=== PATIENT | female | born 1945 | race Caucasian/White ===

== ENCOUNTER 2023-06-30 09:53 | Inpatient (IN) ==
[2023-06-30] MEDS ORDERED: IOPAMIDOL 100 ML BOTTLE IV ONE (09:54)
[2023-06-30 10:13] LABS: POC Calcium, Ionized 1.16 (1.16-1.32); POC Creatinine 0.8 (0.6-1.2); POC Potassium 3.6 (3.3-5.1)
[2023-06-30] MEDS ORDERED: 0.9 % SODIUM CHLORIDE 1,000 ML IV SCH ×2 (10:15→14:21)
[2023-06-30] MEDS ORDERED: ONDANSETRON 4 MG/2 ML VIAL IV ONE (10:55)
[2023-06-30 10:57] LABS: Basophils # (Auto) 0.03 K/mcL (0.00-0.30); Basophils % (Auto) 0.8 % (0.0-2.0); Eosinophils # (Auto) 0.13 K/mcL (0.00-0.70); Eosinophils % (Auto) 3.5 % (0.0-7.0); Hematocrit 41.4 % (34.1-44.9); Hemoglobin 13.4 g/dL (11.2-15.7); Lymphocytes # (Auto) 1.41 K/mcL (1.50-4.80); Lymphocytes % (Auto) 37.5 % (15.5-49.0); Mean Cell Volume 83.3 fL (80.0-100.0); Mean Corpuscular HGB Conc 32.4 g/dL (31.0-36.0); Mean Platelet Volume 10.2 fL (8.8-12.5); Monocytes # (Auto) 0.26 K/mcL (0.10-0.90); Monocytes % (Auto) 6.9 % (1.0-12.0); Platelet Count 267 K/mcL (140-440); RBC 4.97 M/mcL (3.59-5.38); Red Cell Distribution Width 13.8 % (11.5-14.5); WBC 3.8 K/mcL (4.5-11.0)
[2023-06-30 11:11] LABS: ALT/SGPT 9 U/L (<40); AST/SGOT 16 U/L (<32); Albumin 3.9 gm/dL (3.2-5.2); Alkaline Phosphatase 107 U/L (39-117); Bilirubin,Direct < 0.2 mg/dL (0-0.3); Bilirubin,Total 0.4 mg/dL (0.1-1.0); Globulin 2.6 gm/dL (2.2-3.7)
[2023-06-30] MEDS ORDERED: ASPIRIN 81 MG TAB.CHEW CHEWED ONE (12:02)
[2023-06-30] MEDS ORDERED: CLOPIDOGREL 300 MG TABLET PO ONE (12:02)
[2023-06-30] MEDS ORDERED: ATORVASTATIN 40 MG TABLET PO ONE (12:02)
[2023-06-30 13:01] LABS: Prothrombin Time 13.5 sec (11.9-14.5)
[2023-06-30] MEDS ORDERED: POTASSIUM CHLORIDE 40 MEQ in DEXTROSE 5% IN WATER 500 ML IV PRN (14:21)
[2023-06-30] MEDS ORDERED: SENNOSIDES 1 TABLET PO PRN (14:21)
[2023-06-30] MEDS ORDERED: IPRATROPIUM/ALBUTEROL 3 ML AMPUL.NEB NEB PRN (14:21)
[2023-06-30] MEDS ORDERED: MAGNESIUM SULFATE 2 GM/50 ML BAG IV PRN (14:21)
[2023-06-30] MEDS ORDERED: ONDANSETRON 4 MG/2 ML VIAL IV PRN (14:21)
[2023-06-30] MEDS ORDERED: POLYETHYLENE GLYCOL 3350 17 GM PACKET PO PRN (14:21)
[2023-06-30] MEDS ORDERED: LABETALOL 5 MG/ML ML IV PRN (14:21)
[2023-06-30] MEDS ORDERED: POTASSIUM CHLORIDE 20 MEQ TABLET PO PRN ×2 (14:21)
[2023-06-30 14:45] LABS: HDL Cholesterol 76 mg/dL (>40); LDL Cholesterol,Calculated 153 mg/dL (<100); Non-HDL Cholesterol 170 mg/dL (<130); Triglycerides 90 mg/dL (<150)
[2023-06-30 15:15] LABS: Appearance,Urine CLEAR (Clear); Bilirubin,Urine Negative (Negative); Color,Urine YELLOW; Culture Indicated,Urine No; Glucose,Urine (UA) Negative (Negative); Ketones,Urine Negative (Negative); Leukocyte Esterase,Urine Negative /uL (Negative); Nitrate,Urine Negative (Negative); Protein,Urine Negative (Negative); Specific Gravity,Urine 1.039 (1.000-1.035); Urine Blood Negative (Negative); Urobilinogen,Urine Negative
[2023-06-30] MEDS: ATORVASTATIN 40 MG TABLET PO SCH (20:12)
[2023-06-30] MEDS: DOCUSATE SODIUM 100 MG CAPSULE PO SCH (20:13)
[2023-07-01 06:23] LABS: Basophils # (Auto) 0.04 K/mcL (0.00-0.30); Basophils % (Auto) 0.9 % (0.0-2.0); Eosinophils # (Auto) 0.16 K/mcL (0.00-0.70); Eosinophils % (Auto) 3.8 % (0.0-7.0); Lymphocytes # (Auto) 1.35 K/mcL (1.50-4.80); Lymphocytes % (Auto) 31.7 % (15.5-49.0); Mean Cell Volume 85.6 fL (80.0-100.0); Mean Corpuscular HGB Conc 31.6 g/dL (31.0-36.0); Mean Platelet Volume 10.5 fL (8.8-12.5); Monocytes # (Auto) 0.33 K/mcL (0.10-0.90); Monocytes % (Auto) 7.7 % (1.0-12.0); Neutrophils % (Auto) 55.7 % (38.0-78.0); Platelet Count 245 K/mcL (140-440); RBC 4.44 M/mcL (3.59-5.38); Red Cell Distribution Width 13.8 % (11.5-14.5); WBC 4.3 K/mcL (4.5-11.0)
[2023-07-01 06:47] LABS: ALT/SGPT 6 U/L (<40); AST/SGOT 12 U/L (<32); Albumin 3.1 gm/dL (3.2-5.2); Albumin/Globulin Ratio 1.3 (1.0-2.3); Alkaline Phosphatase 84 U/L (39-117); Bilirubin,Direct < 0.2 mg/dL (0-0.3); Bilirubin,Total 0.5 mg/dL (0.1-1.0); Blood Urea Nitrogen 16 mg/dL (8-23); Calcium 8.6 mg/dL (8.6-10.4); Carbon Dioxide 24 mmol/L (22-30); Chloride 106 mmol/L (96-108); Globulin 2.3 gm/dL (2.2-3.7); Glomerular Filtration Rate 70; Glucose 94 mg/dL (70-105); Lactate Dehydrogenase 153 U/L (135-225); Phosphorous 3.8 mg/dL (2.5-4.5); Triglycerides 72 mg/dL (<150); Uric Acid 3.9 mg/dL (2.5-8.0)
[2023-07-01] MEDS: CLOPIDOGREL 75 MG TABLET PO SCH (08:59)
[2023-07-01] MEDS: PANTOPRAZOLE 40 MG TABLET PO SCH (09:00)
[2023-07-01] MEDS: ASPIRIN 81 MG TAB.CHEW CHEWED SCH (09:00)
[2023-07-01] MEDS: ENOXAPARIN 40 MG/0.4 ML SYRINGE SQ SCH (09:00)
[2023-07-01] MEDS: DOCUSATE SODIUM 100 MG CAPSULE PO SCH ×2 (09:00→20:18)
[2023-07-01] MEDS ORDERED: CLOPIDOGREL 75 MG TABLET PO ONE (10:00)
[2023-07-01] MEDS ORDERED: ACETAMINOPHEN 325 MG TABLET PO PRN (10:36)
[2023-07-01] MEDS: ATORVASTATIN 40 MG TABLET PO SCH (20:18)
[2023-07-02] MEDS: ENOXAPARIN 40 MG/0.4 ML SYRINGE SQ SCH (08:07)
[2023-07-02] MEDS: ASPIRIN 81 MG TAB.CHEW CHEWED SCH (08:07)
[2023-07-02] MEDS: CLOPIDOGREL 75 MG TABLET PO SCH (08:07)
[2023-07-02] MEDS: DOCUSATE SODIUM 100 MG CAPSULE PO SCH (08:07)
[2023-07-02] MEDS ORDERED: LISINOPRIL 5 MG TABLET PO SCH (09:00)
[2023-07-02] MEDS: PANTOPRAZOLE 40 MG TABLET PO SCH (09:12)
[2023-07-02] MEDS ORDERED: LISINOPRIL 5 MG TABLET ONE (09:29)
== END 2023-07-02 11:30 | disposition home health service (06) | DRG 65 ==
LOC: ED 09:53 → ICU 09:53
PROVIDERS: ADMIT Internal Medicine; ATTEND Internal Medicine